=== PATIENT | female | born 1990 | race Caucasian/White ===

== ENCOUNTER → 2017-03-28 11:08 | Emergency (ER) | payer OTHER ==
[2017-03-28 14:02] LABS: Hematocrit 42 % (35-47); Hemoglobin 14.3 g/dl (12.0-16.0); Mean Corpuscular HGB Conc 34 g/dl (31-36); Mean Corpuscular Hemoglobin 29 pg (27-31); Mean Corpuscular Volume 85 fL (80-97); Mean Platelet Volume 8 um3 (7.4-10.4); Red Blood Count 4.97 10^6/ul (4.0-5.4); Red Cell Distribution Width 13 % (10.5-15); White Blood Count 8.2 10^3/ul (3.5-10.8)
[2017-03-28 14:19] LABS: Albumin 4.6 g/dL (3.2-5.2); Calcium 9.5 mg/dL (8.6-10.3); EGFR African American 161.6 (>60); EGFR Non-African American 125.7 (>60); Globulin 2.7 g/dL (2-4); Potassium 3.6 mmol/L (3.5-5.0); Total Bilirubin 0.7 mg/dL (0.2-1.0); Total Protein 7.3 g/dL (6.4-8.9)
[2017-03-28 14:44] LABS: TSH (Thyroid Stimulating Horm) 0.04 mcIU/mL (0.34-5.60)
[2017-03-28 15:39] VITALS: BP 104/70
--- NOTE | 2017-03-28 23:25 | ED ---
Ruiz Mitchell Benjamin, scribed for Kwasi Ruiz MD on 03/28/17 at 1501 . HPI Chest Pain - HPI Summary HPI Summary: 26yo female c/o waking up this morning around 6:30am with a mid sternal CP with stabbing and heaviness character. Pt rates the pain around 5 out of 10 scale. Pain was also worsen once upon exertion. Now, pain has resided into discomfort of 2-3 out of 10. Pt has her thyroid removed after being dx'ed with hyperthyroidism. - History of Current Complaint Chief Complaint: EDChestWallPain Time Seen by Provider: 03/28/17 13:22 Hx Obtained From: Patient Onset/Duration: Started Hours Ago - this morning, Resolved Timing: Constant Initial Severity: Moderate Current Severity: Mild Pain Intensity: 2 Pain Scale Used: 0-10 Numeric Chest Pain Location: Mid Sternal Chest Pain Radiates: No Character: Pressure/Squeezing, Sharp/Stabbing Aggravating Factor(s): Exertion Alleviating Factor(s): Nothing Associated Signs and Symptoms: Positive: Negative - Allergy/Home Medications Allergies/Adverse Reactions: Allergies Allergy/AdvReac Type Severity Reaction Status Date / Time Acetaminophen [From Percocet] Allergy ANAPHYLACTI Verified 02/02/16 09:18 C Garlic Allergy BLOATING Verified 02/02/16 09:18 AND DIARRHEA Ketorolac Tromethamine Allergy ANAPHYLACTI Verified 02/02/16 09:18 [From Toradol] C Latex Allergy ITCHINESS Verified 02/02/16 09:18 Oxycodone [From Percocet] Allergy ANAPHYLACTI Verified 02/02/16 09:18 C Phenazopyridine Allergy Hives Verified 02/02/16 09:18 [From Pyridium] ENVIRONMENTAL Allergy SINUS Uncoded 02/02/16 09:18 PRESSURE, GENERAL UPPER RESP DISTRESS MILK Allergy Diarrhea Uncoded 02/02/16 09:18 SULFA DRUGS Allergy HIVES, Uncoded 02/02/16 09:18 BOWEL DISCOMFORT PMH/Surg Hx/FS Hx/Imm Hx Endocrine/Hematology History: Reports: Hx Thyroid Disease - HASHIMOTOS THYROIDITIS- HYPER, Hx Anemia - X 1 IN THE PAST Respiratory History: Reports: Hx Asthma - UNDER CONTROL NO MEDICATION FOR, Other Respiratory Problems/Disorders - NASAL CONGESTION RELATED TO ALLERGY GI History: Reports: Hx Gastroesophageal Reflux Disease - ONLY RELATED TO History: Reports: Other Problems/Disorders - HX OF CHRONIC UTI'S Musculoskeletal History: Reports: Other Musculoskeletal History - MUSCLE WEAKNESS R/T THYROID ILLNESS Sensory History: Reports: Hx Contacts or Glasses - GLASSES Denies: Hx Hearing Aid Opthamlomology History: Reports: Hx Contacts or Glasses - GLASSES Neurological History: Reports: Other Neuro Impairments/Disorders - DIZZINES WITH LOW BLOOD SUGAR OR QUICK POSITION CHANGES, NO PROBLEM RECENTL Psychiatric History: Reports: Hx Anxiety - HX OF - NO MEDICATION - Surgical History Surgery Procedure, Year, and Place: TONSILLECTOMY. ORAL SURGERY- 8 IMPACTED TEETH REMOVED. D&C. D&E Hx Anesthesia Reactions: Yes - NAUSEA Infectious Disease History: No Infectious Disease History: Denies: Traveled Outside the [place] in Last 30 Days - Family History Known Family History: Positive: Cardiac Disease - Social History Occupation: Employed Full-time Lives: With Family Alcohol Use: Occasionally Alcohol Amount: SOCIALLY Substance Use Type: Reports: None Smoking Status (MU): Never Smoked Tobacco Review of Systems Constitutional: Negative Eyes: Negative ENT: Negative Positive: Chest Pain Respiratory: Negative Gastrointestinal: Negative Genitourinary: Negative Positive: no symptoms reported Musculoskeletal: Negative Skin: Negative Neurological: Negative Psychological: Normal All Other Systems Reviewed And Are Negative: Yes Physical Exam Triage Information Reviewed: Yes Vital Signs On Initial Exam: Initial Vitals Temp Pulse Resp BP Pulse Ox 98.9 F 104 20 123/77 100 03/28/17 11:14 03/28/17 11:14 03/28/17 11:14 03/28/17 11:14 03/28/17 11:14 Vital Signs Reviewed: Yes Appearance: Positive: Well-Appearing, No Pain Distress, Well-Nourished Skin: Positive: Warm, Skin Color Reflects Adequate Perfusion, Dry Head/Face: Positive: Normal Head/Face Inspection Eyes: Positive: Normal ENT: Positive: Normal ENT inspection, Pharynx normal, TMs normal Neck: Positive: Supple, Nontender Respiratory/Lung Sounds: Positive: Clear to Auscultation, Breath Sounds Present Cardiovascular: Positive: RRR, Other - mild peristernal tenderness Abdomen Description: Positive: Nontender, No Organomegaly, Soft Bowel Sounds: Positive: Present Musculoskeletal: Positive: Strength/ROM Intact Neurological: Positive: Sensory/Motor Intact, Alert, Oriented to Person Place, Time, CN Intact II-III Psychiatric: Positive: Affect/Mood Appropriate - Johan Coma Scale Coma Scale Total: 15 Diagnostics - Vital Signs Vital Signs Temp Pulse Resp BP Pulse Ox 03/28/17 13:50 99 03/28/17 13:30 95 117/69 99 03/28/17 13:00 90 110/72 100 03/28/17 12:30 95 104/76 94 03/28/17 12:13 92 21 99 03/28/17 12:12 112/73 03/28/17 12:08 99.6 F 95 20 112/73 100 03/28/17 11:14 98.9 F 104 20 123/77 100 - Laboratory Lab Results: Lab Results 03/28/17 03/28/17 03/28/17 Range/Units 13:52 13:52 13:52 WBC 8.2 (3.5-10.8) 10^3/ul RBC 4.97 (4.0-5.4) 10^6/ul Hgb 14.3 (12.0-16.0) g/dl Hct 42 (35-47) % MCV 85 (80-97) fL MCH 29 (27-31) pg MCHC 34 (31-36) g/dl RDW 13 (10.5-15) % Plt Count 196 (150-450) 10^3/ul MPV 8 (7.4-10.4) um3 Neut % (Auto) 61.4 (38-83) % Lymph % (Auto) 32.0 (25-47) % Jackson % (Auto) 6.0 (1-9) % Eos % (Auto) 0.2 (0-6) % Baso % (Auto) 0.4 (0-2) % Absolute Neuts (auto) 5.1 (1.5-7.7) 10^3/ul Absolute Lymphs (auto) 2.6 (1.0-4.8) 10^3/ul Absolute Monos (auto) 0.5 (0-0.8) 10^3/ul Absolute Eos (auto) 0 (0-0.6) 10^3/ul Absolute Basos (auto) 0 (0-0.2) 10^3/ul Absolute Nucleated RBC 0.01 10^3/ul Nucleated RBC % 0.1 D-Dimer, Quantitative (Less Than 230) ng/mL Sodium 135 (133-145) mmol/L Potassium 3.6 (3.5-5.0) mmol/L Chloride 105 (101-111) mmol/L Carbon Dioxide 23 (22-32) mmol/L Anion Gap 7 (2-11) mmol/L BUN 11 (6-24) mg/dL Creatinine 0.58 (0.51-0.95) mg/dL Est GFR ( Amer) 161.6 (>60) Est GFR (Non-Af Amer) 125.7 (>60) BUN/Creatinine Ratio 19.0 (8-20) Glucose 79 (70-100) mg/dL Lactic Acid 0.7 (0.5-2.0) mmol/L Calcium 9.5 (8.6-10.3) mg/dL Total Bilirubin 0.70 (0.2-1.0) mg/dL AST 15 (13-39) U/L ALT 10 (7-52) U/L Alkaline Phosphatase 44 (34-104) U/L Troponin I 0.00 (<0.04) ng/mL Total Protein 7.3 (6.4-8.9) g/dL Albumin 4.6 (3.2-5.2) g/dL Globulin 2.7 (2-4) g/dL Albumin/Globulin Ratio 1.7 (1-3) TSH Pending 03/28/17 Range/Units 13:52 WBC (3.5-10.8) 10^3/ul RBC (4.0-5.4) 10^6/ul Hgb (12.0-16.0) g/dl Hct (35-47) % MCV (80-97) fL MCH (27-31) pg MCHC (31-36) g/dl RDW (10.5-15) % Plt Count (150-450) 10^3/ul MPV (7.4-10.4) um3 Neut % (Auto) (38-83) % Lymph % (Auto) (25-47) % Jackson % (Auto) (1-9) % Eos % (Auto) (0-6) % Baso % (Auto) (0-2) % Absolute Neuts (auto) (1.5-7.7) 10^3/ul Absolute Lymphs (auto) (1.0-4.8) 10^3/ul Absolute Monos (auto) (0-0.8) 10^3/ul Absolute Eos (auto) (0-0.6) 10^3/ul Absolute Basos (auto) (0-0.2) 10^3/ul Absolute Nucleated RBC 10^3/ul Nucleated RBC % D-Dimer, Quantitative < 200 (Less Than 230) ng/mL Sodium (133-145) mmol/L Potassium (3.5-5.0) mmol/L Chloride (101-111) mmol/L Carbon Dioxide (22-32) mmol/L Anion Gap (2-11) mmol/L BUN (6-24) mg/dL Creatinine (0.51-0.95) mg/dL Est GFR ( Amer) (>60) Est GFR (Non-Af Amer) (>60) BUN/Creatinine Ratio (8-20) Glucose (70-100) mg/dL Lactic Acid (0.5-2.0) mmol/L Calcium (8.6-10.3) mg/dL Total Bilirubin (0.2-1.0) mg/dL AST (13-39) U/L ALT (7-52) U/L Alkaline Phosphatase (34-104) U/L Troponin I (<0.04) ng/mL Total Protein (6.4-8.9) g/dL Albumin (3.2-5.2) g/dL Globulin (2-4) g/dL Albumin/Globulin Ratio (1-3) TSH Result Diagrams: 03/28/17 13:52 03/28/17 13:52 Lab Statement: Any lab studies that have been ordered have been reviewed, and results considered in the medical decision making process. - EKG 1215 Cardiac Rate: NL - 84bpm EKG Rhythm: Sinus Rhythm ST Segment: Normal Ectopy: None Chest Pain Course/Dx - Course Course Of Treatment: My impression is that she likely had some reflux during the night and is improving. She is, however, quite hyperthyroid and I recommended that she F/U as soon as possible. 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 She says she was told her homocysteine level was fine though. I am not aware of this being a risk factor for PE and she clinically does not have one. Her Well' s criteria score is zero. - Diagnoses Provider Diagnoses: Chest pain Discharge - Discharge Plan Condition: Stable Disposition: HOME Patient Education Materials: Chest Pain (ED), Hyperthyroidism (ED) Forms: *Work Release Referrals: Jorge Jossy WAYNE [Primary Care Provider] - Dianne SENIOR,Abimael Ceja [Medical Doctor] - The documentation as recorded by the Ruiz benoit Benjamin accurately reflects the service I personally performed and the decisions made by me, Kwasi Ruiz MD.
== END | disposition home or self-care (01) ==
LOC: ED 11:08
DX: R07.9 Chest pain, unspecified (principal); Z88.5 Allergy status to narcotic agent; Z88.8 Allergy status to other drugs, medicaments and biological substances; E89.0 Postprocedural hypothyroidism
CPT/HCPCS: 36415; 80053; 83605; 84443; 84484; 85025; 85379; 93005; 99283

== ENCOUNTER 2020-08-31 08:26 | Inpatient (IN) ==
[2020-08-31] MEDS ORDERED: Lactated Ringers 1000 ml BAG 1,000 ML IV ONE (11:08)
[2020-08-31] MEDS ORDERED: Buffered Lidocaine 1% SYRIN 1 ml INTRADERM ONE (11:15)
[2020-08-31 12:00] LABS: ABS Lymphocytes 1.8 10^3/ul (1.0-4.8); ABS Monocytes 0.7 10^3/ul (0-0.8); ABS Neutrophils 6.8 10^3/ul (1.5-7.7); Eosinophil % 0.4 %; Hematocrit 35 % (35-47); Hemoglobin 11.6 g/dL (12.0-16.0); Lymphocyte % 19.4 %; Mean Corpuscular HGB Conc 33 g/dL (31-36); Mean Corpuscular Hemoglobin 25 pg (27-31); Mean Corpuscular Volume 76 fL (80-97); Mean Platelet Volume 8.5 fL (7.4-10.4); Platelet Count 208 10^3/uL (150-450); Red Blood Count 4.57 10^6 /uL (3.70-4.87); Red Cell Distribution Width 19 % (10-15); White Blood Count 9.4 10^3/uL (3.5-10.8)
[2020-08-31] MEDS ORDERED: Oxytocin in LR 20 UNITS/1,000 ML BAG IVPB SCH (12:00)
[2020-08-31] MEDS ORDERED: Lactated Ringers 1000 ml BAG 1,000 ML IV SCH (12:00)
[2020-08-31 12:36] LABS: Activated Partial Thrombo Time 26.1 seconds (26.0-38.0)
[2020-08-31 17:26] LABS: Urine Benzodiazepine Screen None Detected (None Detect); Urine Cannabinoids Screen None Detected (None Detect); Urine Opiates Screen None Detected (None Detect)
[2020-08-31] MEDS ORDERED: Promethazine INJ(RESTRICTED) 25 MG/ML 1 ml VIAL IV ONE (23:16)
[2020-09-01] MEDS: Oxytocin in LR 20 UNITS/1,000 ML BAG IVPB SCH (07:34)
[2020-09-01] MEDS ORDERED: Promethazine INJ(RESTRICTED) 25 MG/ML 1 ml VIAL IV ONE (10:37)
[2020-09-01] MEDS ORDERED: OBEPIDURAL 250 ML EPIDURAL ONE (10:58)
[2020-09-01] MEDS ORDERED: Bupivacaine 0.25% SDV PF 10 ML VIAL INJ ONE (11:01)
[2020-09-01] MEDS ORDERED: Phenylephrine 40 mcg/mL 10mL (400mcg) SYRINGE IV PUSH PRN ×2 (11:34)
[2020-09-01] MEDS ORDERED: Sodium Citrate/Citric Acid LIQ 15 ML UDC PO PRN (11:34)
[2020-09-01] MEDS ORDERED: Lactated Ringers 1000 ml BAG 1,000 ML IV ONE (11:34)
[2020-09-01] MEDS ORDERED: OBEPIDURAL 250 ML EPIDURAL SCH (12:00)
[2020-09-01] MEDS ORDERED: Lactated Ringers 1000 ml BAG 1,000 ML IV SCH (12:00)
[2020-09-02] MEDS: Oxytocin in LR 20 UNITS/1,000 ML BAG IVPB SCH (01:06)
[2020-09-02] MEDS ORDERED: Dibucaine 1% OINT 28.35 GM TUBE PR PRN (02:08)
[2020-09-02] MEDS ORDERED: Glycerin ADULT 2.4 gm SUPP PR PRN (02:08)
[2020-09-02] MEDS ORDERED: Witch Hazel PAD JAR TOPICAL PRN (02:08)
[2020-09-02] MEDS ORDERED: Lactated Ringers 1000 ml BAG 1,000 ML IV SCH (03:00)
[2020-09-02] MEDS: Enoxaparin 40 MG/0.4 ML SYR SUBCUT SCH (12:35)
[2020-09-03 07:05] VITALS: BP 108/67
[2020-09-03 07:14] LABS: ABS Basophils 0.1 10^3/ul (0-0.2); ABS Eosinophils 0.1 10^3/ul (0-0.6); ABS Lymphocytes 3.5 10^3/ul (1.0-4.8); ABS Monocytes 1.3 10^3/ul (0-0.8); ABS Neutrophils 9.4 10^3/ul (1.5-7.7); Eosinophil % 0.9 %; Hematocrit 37 % (35-47); Lymphocyte % 24.1 %; Mean Corpuscular HGB Conc 32 g/dL (31-36); Mean Corpuscular Hemoglobin 25 pg (27-31); Mean Corpuscular Volume 77 fL (80-97); Mean Platelet Volume 8.5 fL (7.4-10.4); Platelet Count 219 10^3/uL (150-450); Red Blood Count 4.88 10^6 /uL (3.70-4.87); Red Cell Distribution Width 20 % (10-15); White Blood Count 14.5 10^3/uL (3.5-10.8)
[2020-09-03] MEDS: Enoxaparin 40 MG/0.4 ML SYR SUBCUT SCH (12:31)
== END 2020-09-03 16:15 | disposition home or self-care (01) | DRG 560 ==
LOC: MCHOBOUT 08:26 → MCHOB 11:24
PROVIDERS: ADMIT Obstetrics & Gynecology; ATTEND Obstetrics & Gynecology

== ENCOUNTER 2024-01-06 16:03 | Inpatient (IN) ==
[2024-01-06 16:20] LABS: ABS Basophils 0.1 10^3/uL (0.0-0.1); ABS Lymphocytes 2.5 10^3/uL (1.0-4.8); ABS Monocytes 0.7 10^3/uL (0.0-0.9); ABS Neutrophils 6.5 10^3/uL (1.5-7.6); ABS Nucleated RBC 0.02 10^3/ul; Eosinophil % 0.4 %; Hematocrit 43.4 % (35-45); Hemoglobin 14.8 g/dL (11.5-14.3); Lymphocyte % 25.8 %; Mean Corpuscular Hemoglobin 29.3 pg (27-33); Mean Corpuscular Hgb Conc 34.2 g/dL (31-36); Mean Corpuscular Volume 85.8 fL (80-97); Mean Platelet Volume 8.4 fL (7.5-11.2); Nucleated Red Blood Cells % 0.2 %/100WBC (0.0-0.8); Platelet Count 236 10^3/uL (150-450); Red Blood Count 5.05 10^6/uL (3.63-4.92); Red Cell Distribution Width 13.6 % (12-17); White Blood Count 9.7 10^3/uL (3.8-11.8)
[2024-01-06] MEDS: Iodixanol (CONTRAST) 320 MG/ML 100 ML SDV IV ONE (16:39)
[2024-01-06] MEDS: TENECTEPLASE 50 MG VIAL KIT 5 MG/ML (reconstituted) IV ONE (16:48)
[2024-01-06 16:51] LABS: Albumin 5.1 g/dL (3.2-5.2); Albumin/Globulin Ratio 1.6 (1-3); Calcium 9.5 mg/dL (8.6-10.3); Creatinine, Serum 0.77 mg/dL (0.51-0.95); Direct Bilirubin 0.1 mg/dL (0.03-0.18); Globulin 3.1 g/dL (2-4); HDL Cholesterol 72.1 mg/dL; Indirect Bilirubin 0.4 mg/dL (0.3-1.0); Potassium 3.2 mmol/L (3.5-5.0); Total Bilirubin 0.5 mg/dL (0.2-1.0); Total Protein 8.2 g/dL (6.4-8.9); eGFR CKD-EPI 104.4 (>60)
[2024-01-06 17:09] LABS: Activated Partial Thrombo Time 32.5 seconds (26.0-38.0); INR 1.13 (0.83-1.13)
[2024-01-06] MEDS: Metoclopramide 5 MG/ML VIAL (10 mg) IV SLOW PU ONE (17:25)
[2024-01-06] MEDS ORDERED: UBROGEPANT 50 MG PO PRN (19:30)
[2024-01-07] MEDS: Metoclopramide 5 MG/ML VIAL (10 mg) IV PRN (00:45)
[2024-01-07 05:34] LABS: ABS Eosinophils 0.1 10^3/uL (0.0-0.5); ABS Monocytes 0.6 10^3/uL (0.0-0.9); ABS Neutrophils 4.3 10^3/uL (1.5-7.6); ABS Nucleated RBC 0.01 10^3/ul; Eosinophil % 0.9 %; Hematocrit 37.5 % (35-45); Hemoglobin 13.1 g/dL (11.5-14.3); Lymphocyte % 28.8 %; Mean Corpuscular Hemoglobin 29.8 pg (27-33); Mean Corpuscular Volume 85.2 fL (80-97); Mean Platelet Volume 8.3 fL (7.5-11.2); Nucleated Red Blood Cells % 0.1 %/100WBC (0.0-0.8); Platelet Count 172 10^3/uL (150-450); Red Cell Distribution Width 13.4 % (12-17)
[2024-01-07 05:51] LABS: Anion Gap 7 mmol/L (2-16); Blood Urea Nitrogen 16 mg/dL (6-24); CO2 Carbon Dioxide 22 mmol/L (22-32); Calcium 8.6 mg/dL (8.6-10.3); Chloride 107 mmol/L (101-111); Creatinine, Serum 0.73 mg/dL (0.51-0.95); Glucose 85 mg/dL (70-100); Potassium 3.4 mmol/L (3.5-5.0); Sodium 136 mmol/L (135-145); eGFR CKD-EPI 111.3 (>60)
[2024-01-07] MEDS: Potassium Chlor 20 meq TAB.ER PO ONE (07:48)
[2024-01-07] MEDS: Iohexol 350 (CONTRAST) 500 ML MDV IV ONE (16:52)
[2024-01-07 17:59] LABS: HCG Pregnancy < 0.60 mIU/mL
[2024-01-08 05:15] LABS: ABS Eosinophils 0.1 10^3/uL (0.0-0.5); ABS Lymphocytes 2.2 10^3/uL (1.0-4.8); ABS Monocytes 0.5 10^3/uL (0.0-0.9); ABS Neutrophils 4.2 10^3/uL (1.5-7.6); ABS Nucleated RBC 0.01 10^3/ul; Eosinophil % 0.9 %; Hematocrit 38.4 % (35-45); Hemoglobin 13.3 g/dL (11.5-14.3); Lymphocyte % 31.7 %; Mean Corpuscular Hemoglobin 29.6 pg (27-33); Mean Corpuscular Hgb Conc 34.6 g/dL (31-36); Mean Corpuscular Volume 85.4 fL (80-97); Mean Platelet Volume 8.5 fL (7.5-11.2); Nucleated Red Blood Cells % 0.1 %/100WBC (0.0-0.8); Platelet Count 185 10^3/uL (150-450); Red Blood Count 4.49 10^6/uL (3.63-4.92); Red Cell Distribution Width 13.1 % (12-17); White Blood Count 7.1 10^3/uL (3.8-11.8)
[2024-01-08 05:33] LABS: Calcium 8.9 mg/dL (8.6-10.3); Creatinine, Serum 0.69 mg/dL (0.51-0.95); Potassium 3.8 mmol/L (3.5-5.0); eGFR CKD-EPI 117.4 (>60)
[2024-01-08] MEDS: Potassium Chlor 20 meq TAB.ER PO ONE (08:27)
[2024-01-08] MEDS: CMC:LINACLOTIDE 72 MCG CAP (NF) PO SCH (08:28)
[2024-01-08 12:12] LABS: ABS Lymphocytes 1.8 10^3/uL (1.0-4.8); ABS Monocytes 0.6 10^3/uL (0.0-0.9); ABS Neutrophils 5.5 10^3/uL (1.5-7.6); Eosinophil % 0.4 %; Hematocrit 39.2 % (35-45); Hemoglobin 13.6 g/dL (11.5-14.3); Lymphocyte % 22.1 %; Mean Corpuscular Hemoglobin 29.8 pg (27-33); Mean Corpuscular Hgb Conc 34.7 g/dL (31-36); Mean Corpuscular Volume 85.9 fL (80-97); Mean Platelet Volume 8.6 fL (7.5-11.2); Nucleated Red Blood Cells % 0.1 %/100WBC (0.0-0.8); Platelet Count 200 10^3/uL (150-450); Red Blood Count 4.56 10^6/uL (3.63-4.92); Red Cell Distribution Width 13.4 % (12-17); White Blood Count 7.9 10^3/uL (3.8-11.8)
[2024-01-08 12:29] LABS: Creatinine, Serum 0.81 mg/dL (0.51-0.95); eGFR CKD-EPI 98.2 (>60)
[2024-01-08] MEDS: Heparin DRIP 25,000 UNITS BAG 25,000 UNITS/250 ML BAG IV SCH (13:00)
[2024-01-08] MEDS: Heparin 5000 UNITS/ML 1 mL VIAL IV SCH (13:05)
[2024-01-09 06:02] LABS: ABS Eosinophils 0.1 10^3/uL (0.0-0.5); ABS Lymphocytes 2.8 10^3/uL (1.0-4.8); ABS Monocytes 0.6 10^3/uL (0.0-0.9); ABS Neutrophils 3.9 10^3/uL (1.5-7.6); ABS Nucleated RBC 0.01 10^3/ul; Eosinophil % 0.8 %; Hematocrit 39.2 % (35-45); Hemoglobin 13.4 g/dL (11.5-14.3); Lymphocyte % 37.8 %; Mean Corpuscular Hemoglobin 29.2 pg (27-33); Mean Corpuscular Hgb Conc 34.1 g/dL (31-36); Mean Corpuscular Volume 85.6 fL (80-97); Mean Platelet Volume 8.7 fL (7.5-11.2); Nucleated Red Blood Cells % 0.1 %/100WBC (0.0-0.8); Platelet Count 164 10^3/uL (150-450); Red Blood Count 4.57 10^6/uL (3.63-4.92); Red Cell Distribution Width 13.4 % (12-17); White Blood Count 7.3 10^3/uL (3.8-11.8)
[2024-01-09 06:39] LABS: Activated Partial Thrombo Time 126.2 seconds (26.0-38.0)
[2024-01-09 07:46] LABS: INR 1.18 (0.83-1.13)
[2024-01-09 14:00] VITALS: BP 103/74
== END 2024-01-09 15:00 | disposition home or self-care (01) | DRG 45 ==
LOC: ED 16:03 → SUATTDRO 17:12 → EDHOLD 17:12 → ICU 19:00 → MEDTELE 01-08 10:47
PROVIDERS: ADMIT Internal Medicine Pulmonary Disease; ATTEND Internal Medicine

== ENCOUNTER 2024-12-12 18:50 | Observation (INO) ==
[2024-12-12 19:31] LABS: ABS Basophils 0.1 10^3/uL (0.0-0.1); ABS Lymphocytes 1.3 10^3/uL (1.0-4.8); ABS Monocytes 0.5 10^3/uL (0.0-0.9); ABS Neutrophils 6.6 10^3/uL (1.5-7.6); ABS Nucleated RBC 0.01 10^3/ul; Eosinophil % 0.4 %; Hematocrit 39.4 % (35-45); Hemoglobin 13.6 g/dL (11.5-14.3); Lymphocyte % 15.2 %; Mean Corpuscular Hemoglobin 29.6 pg (27-33); Mean Corpuscular Hgb Conc 34.5 g/dL (31-36); Mean Corpuscular Volume 85.6 fL (80-97); Mean Platelet Volume 8.5 fL (7.5-11.2); Nucleated Red Blood Cells % 0.1 %/100WBC (0.0-0.8); Platelet Count 166 10^3/uL (150-450); Red Cell Distribution Width 13.2 % (12-17); White Blood Count 8.4 10^3/uL (3.8-11.8)
[2024-12-12 19:42] LABS: Activated Partial Thrombo Time 25.2 seconds (26.0-38.0); INR 1.19 (0.85-1.14)
[2024-12-12] MEDS: Enoxaparin 60 MG/0.6 ML SYR SUBCUT ONE (19:49)
[2024-12-12 20:13] LABS: ALT 9 U/L (7-52); AST 12 U/L (13-39); Albumin 4.5 g/dL (3.5-5.7); Alkaline Phosphatase 42 U/L (35-149); Anion Gap 11 mmol/L (2-16); Blood Urea Nitrogen 14 mg/dL (6-24); CO2 Carbon Dioxide 18 mmol/L (22-32); Calcium 9.2 mg/dL (8.6-10.3); Chloride 107 mmol/L (101-111); Cholesterol 175 mg/dL; Creatinine, Serum 0.78 mg/dL (0.51-0.95); Direct Bilirubin 0.1 mg/dL (0.03-0.18); Globulin 2.3 g/dL (2-4); Glucose 106 mg/dL (70-100); HDL Cholesterol 57.6 mg/dL; Indirect Bilirubin 0.3 mg/dL (0.3-1.0); LDL Cholesterol 111 mg/dL; Potassium 3.4 mmol/L (3.5-5.0); Sodium 136 mmol/L (135-145); Total Bilirubin 0.4 mg/dL (0.2-1.0); Total Protein 6.8 g/dL (6.4-8.9); Triglycerides 34 mg/dL; eGFR CKD-EPI 102.1 (>60)
[2024-12-12 20:18] LABS: HCG Pregnancy < 0.60 mIU/mL
[2024-12-12 21:22] LABS: HIV 4th Generation Nonreactive (Nonreactive)
[2024-12-12 22:32] LABS: Creatine Kinase 28 U/L (10-223)
[2024-12-12 22:48] LABS: TSH Ultra Thyroid Stim Horm 0.18 mcIU/mL (0.34-5.60)
[2024-12-12 22:59] LABS: Folate 15.13 ng/mL (5.90-24.80)
[2024-12-12 23:00] LABS: Vitamin B12 247 pg/mL (180-914)
[2024-12-13 00:16] LABS: Urine Appearance Clear; Urine Bilirubin Negative (Negative); Urine Blood 1+ (Negative); Urine Color Light-Yellow; Urine Glucose Negative (Negative); Urine Ketones Negative (Negative); Urine Nitrite Negative (Negative); Urine Protein Trace (Negative); Urine Specific Gravity 1.045 (1.002-1.030); Urine Urobilinogen Negative (Negative)
[2024-12-13 01:22] LABS: Urine Bacteria Absent /HPF (Absent); Urine Red Blood Cell 1+(3-5/hpf) /HPF (0-Trace); Urine Squamous Epithelial Cell Present /HPF (Absent); Urine White Blood Cell Absent /HPF (0-Trace)
[2024-12-13] MEDS: Potassium EFFERVES 25 meq TAB PO ONE (05:36)
[2024-12-13 06:44] LABS: Calcium 9.1 mg/dL (8.6-10.3); Creatinine, Serum 0.86 mg/dL (0.51-0.95); Potassium 3.4 mmol/L (3.5-5.0); eGFR CKD-EPI 90.9 (>60)
[2024-12-13] MEDS: Enoxaparin 60 MG/0.6 ML SYR SUBCUT SCH (09:22)
[2024-12-13] MEDS: Gadobenate (CONTRAST) 529 MG/ML 10 ML SDV IV ONE (10:44)
[2024-12-13] MEDS: Potassium Chloride IV 20 MEQ in Lactated Ringers 1000 ml BAG 1,000 ML IVPB SCH (11:40)
[2024-12-13] MEDS ORDERED: Lorazepam PYXIS KEY PRN (19:55)
[2024-12-13] MEDS: Ondansetron 4 mg VIAL 2 MG/ML 2 ml VIAL IV PRN (22:11)
[2024-12-13] MEDS: LORazepam 2 mg VIAL 1 ml IV PUSH PRN (22:16)
[2024-12-14 05:57] LABS: ABS Eosinophils 0.1 10^3/uL (0.0-0.5); ABS Lymphocytes 2.1 10^3/uL (1.0-4.8); ABS Monocytes 0.3 10^3/uL (0.0-0.9); ABS Neutrophils 2.4 10^3/uL (1.5-7.6); ABS Nucleated RBC 0.01 10^3/ul; Eosinophil % 1.3 %; Hematocrit 36.6 % (35-45); Hemoglobin 12.5 g/dL (11.5-14.3); Mean Corpuscular Hemoglobin 29.2 pg (27-33); Mean Corpuscular Hgb Conc 34.3 g/dL (31-36); Mean Corpuscular Volume 85.1 fL (80-97); Mean Platelet Volume 8.6 fL (7.5-11.2); Nucleated Red Blood Cells % 0.3 %/100WBC (0.0-0.8); Platelet Count 157 10^3/uL (150-450); Red Cell Distribution Width 13.3 % (12-17)
[2024-12-14 06:42] LABS: Albumin 4.3 g/dL (3.5-5.7); Albumin/Globulin Ratio 2.2 (1-3); Calcium 8.6 mg/dL (8.6-10.3); Creatinine, Serum 0.75 mg/dL (0.51-0.95); Magnesium 1.8 mg/dL (1.9-2.7); Potassium 3.7 mmol/L (3.5-5.0); Total Bilirubin 0.5 mg/dL (0.2-1.0); Total Protein 6.3 g/dL (6.4-8.9); eGFR CKD-EPI 107.1 (>60)
[2024-12-14 14:09] VITALS: BP 107/77
== END 2024-12-14 14:55 | disposition home or self-care (01) ==
LOC: EDHOLD 18:50 → ED 18:50 → SUATTDRO 20:56 → MEDTELE 12-13 12:18
PROVIDERS: ADMIT Internal Medicine; ATTEND Internal Medicine